=== PATIENT | male | born 1955 | race Caucasian/White ===

== ENCOUNTER → 2018-09-20 | Outpatient (CLI) | payer SELFPAY ==
--- NOTE | 2018-09-21 11:18 | US ---
EXAMINATION TYPE: US kidneys/renal and bladder DATE OF EXAM: 09/20/2018 COMPARISON: NONE CLINICAL HISTORY: R31.9 Hematuria. EXAM MEASUREMENTS: Right Kidney: 10.7 x 5.3 x 4.5 cm Left Kidney: 10.5 x 5.5 x 5.6 cm Right Kidney: No hydronephrosis or masses seen. Nodular contour Left Kidney: No hydronephrosis or masses seen. Nodular contour Bladder: wnl Bilateral Jets seen: Left jet visualized only There is no evidence for hydronephrosis at this point in time. No nephrolithiasis is seen. No neftali s are identified. The urinary bladder is anechoic. Bilateral ureteral jets are seen. IMPRESSION: Nodular renal contour without distinct mass.
== END | disposition home or self-care (01) ==
LOC: RADUSWWP 16:15
PROVIDERS: ATTEND Family Medicine
DX: R31.9 Hematuria, unspecified (principal)
CPT/HCPCS: 76770

== ENCOUNTER 2023-10-17 13:20 | Inpatient (IN) | payer OTHER ==
--- NOTE | 2023-10-17 14:51 | ED ---
General Adult HPI - General Chief complaint: Psychiatric Symptoms Stated complaint: mental health Time Seen by Provider: 10/17/23 13:36 Source: patient, EMS, RN notes reviewed Mode of arrival: EMS Limitations: no limitations - History of Present Illness Initial comments: 68-year-old male presents to the emergency department for evaluation of mental health issues. Patient states that he has been hearing voices for the past 2 to 3 weeks. He does have a history of this and was on Risperdal in the past. He has been off his medication for around 6 months. He states that about 3 days ago he was going to attempt suicide by hanging because voices had told him that he is not wanted here any longer. He has been hospitalized for his mental health in the past. - Related Data Home Medications Medication Instructions Recorded Confirmed No Known Home Medications 10/17/23 10/17/23 Allergies Allergy/AdvReac Type Severity Reaction Status Date / Time No Known Allergies Allergy Verified 10/17/23 15:18 Review of Systems ROS Statement: Those systems with pertinent positive or pertinent negative responses have been documented in the HPI. ROS Other: All systems not noted in ROS Statement are negative. Past Medical History Past Medical History: No Reported History Additional Past Surgical History / Comment(s): fatty tumor removal on back of neck Past Psychological History: Depression, Schizophrenia Smoking Status: Never smoker Past Alcohol Use History: Occasional Past Drug Use History: None Reported General Exam Limitations: no limitations General appearance: alert, in no apparent distress Head exam: Present: atraumatic, normocephalic, normal inspection Eye exam: Present: normal appearance, PERRL, EOMI. Absent: scleral icterus, conjunctival injection, periorbital swelling ENT exam: Present: normal exam, mucous membranes moist Neck exam: Present: normal inspection. Absent: tenderness, meningismus, lymphadenopathy Respiratory exam: Present: normal lung sounds bilaterally. Absent: respiratory distress, wheezes, rales, rhonchi, stridor Cardiovascular Exam: Present: regular rate, normal rhythm, normal heart sounds. Absent: systolic murmur, diastolic murmur, rubs, gallop, clicks GI/Abdominal exam: Present: soft. Absent: distended, tenderness, guarding, rebound, rigid Extremities exam: Present: normal inspection, full ROM, normal capillary refill. Absent: tenderness, pedal edema, joint swelling, calf tenderness Back exam: Present: normal inspection Neurological exam: Present: alert, oriented X3 Psychiatric exam: Present: normal affect, normal mood Course Vital Signs 10/17/23 10/17/23 10/17/23 13:26 16:29 18:26 Temperature 98.7 F Pulse Rate 101 H 100 105 H Respiratory 18 16 16 Rate Blood Pressure 165/112 148/96 149/99 O2 Sat by Pulse 98 97 98 Oximetry Medical Decision Making - Medical Decision Making Was pt. sent in by a medical professional or institution (, PA, AWS DEVELOPER, urgent care, hospital, or correction...) When possible be specific @ -No Did you speak to anyone other than the patient for history (EMS, parent, family, police, friend...)? What history was obtained from this source @ -No Did you review nursing and triage notes (agree or disagree)? Why? @ -I reviewed and agree with nursing and triage notes Were old charts reviewed (outside hosp., previous admission, EMS record, old EKG, old radiological studies, urgent care reports/EKG's, correction records)? Report findings @ -No old charts were reviewed Differential Diagnosis (chest pain, altered mental status, abdominal pain women, abdominal pain men, vaginal bleeding, weakness, fever, dyspnea, syncope, headache, dizziness, GI bleed, back pain, seizure, CVA, palpatations, mental health, musculoskeletal)? @ -Differential Mental Health Depression, anxiety, bipolar, psychosis, schizophrenia, borderline personality, situational depression, adjustment disorder, behavioral disorder, brain tumor, malingering, substance abuse, encephalopathy, medication reaction, dementia, hypothyroidism, degenerative neurologic disorder, lupus.... This is not meant to be all-inclusive list EKG interpreted by me (3pts min.). @ - EKG at 1722 shows sinus tachycardia rate 105, RI 147, QRS 102, QTQTc [id number] X-rays interpreted by me (1pt min.). @ -None done CT interpreted by me (1pt min.). @ -None done U/S interpreted by me (1pt. min.). @ -None done What testing was considered but not performed or refused? (CT, X-rays, U/S, labs)? Why? @ -None What meds were considered but not given or refused? Why? @ -None Did you discuss the management of the patient with other professionals (professionals i.e. , PA, AWS DEVELOPER, lab, RT, psych nurse, medical social consultant, turkey farmer, teacher, gunnery/ordnance officer, case mgr)? Give summary @ -Management discussed with EPS, recommending inpatient treatment Was smoking cessation discussed for >3mins.? @ -No Was critical care preformed (if so, how long)? @ -No Were there social determinants of health that impacted care today? How? (Homelessness, low income, unemployed, alcoholism, drug addiction, transportation, low edu. Level, literacy, decrease access to med. care, [facility], rehab)? @ -No Was there de-escalation of care discussed even if they declined (Discuss DNR or withdrawal of care, Hospice)? DNR status @ -No What co-morbidities impacted this encounter? (DM, HTN, Smoking, COPD, CAD, Cancer, CVA, ARF, Chemo, Hep., AIDS, mental health diagnosis, sleep apnea, morbid obesity)? @ -None Was patient admitted / discharged? Hospital course, mention meds given and route, prescriptions, significant lab abnormalities, going to OR and other pert inent info. @ -Admitted. Patient presented to the emergency department for evaluation of hallucinations, suicidal ideation. He has been off his mental health medication for around 6 months, the symptoms have been worse for the past 2 weeks. He admits to suicidal ideation. He states the voices are telling him to harm himself. He denies any physical complaints at this time. Patient evaluated by EPS, inpatient treatment recommended. Undiagnosed new problem with uncertain prognosis? @ -No Drug Therapy requiring intensive monitoring for toxicity (Heparin, Nitro, Insulin, Cardizem)? @ -No Were any procedures done? @ -No Diagnosis/symptom? @ -Hallucinations, suicidal ideation Acute, or Chronic, or Acute on Chronic? @ -Acute Uncomplicated (without systemic symptoms) or Complicated (systemic symptoms)? @ -Uncomplicated Side effects of treatment? @ -No Exacerbation, Progression, or Severe Exacerbation? @ -No Poses a threat to life or bodily function? How? (Chest pain, [place], [place], pneumonia, PE, COPD, DKA, ARF, appy, cholecystitis, CVA, Diverticulitis, Homicidal, Suicidal, threat to staff... and all critical care pts) @ -Yes - Lab Data Result diagrams: 10/17/23 17:01 10/17/23 17:01 Lab Results 10/17/23 10/17/23 10/17/23 Range/Units 16:15 16:15 16:15 WBC (3.8-10.6) k/uL RBC (4.30-5.90) m/uL Hgb (13.0-17.5) gm/dL Hct (39.0-53.0) % MCV (80.0-100.0) fL MCH (25.0-35.0) pg MCHC (31.0-37.0) g/dL RDW (11.5-15.5) % Plt Count (150-450) k/uL MPV Neutrophils % % Lymphocytes % % Monocytes % % Eosinophils % % Basophils % % Neutrophils # (1.3-7.7) k/uL Lymphocytes # (1.0-4.8) k/uL Monocytes # (0-1.0) k/uL Eosinophils # (0-0.7) k/uL Basophils # (0-0.2) k/uL Sodium (137-145) mmol/L Potassium (3.5-5.1) mmol/L Chloride (98-107) mmol/L Carbon Dioxide (22-30) mmol/L Anion Gap mmol/L BUN (9-20) mg/dL Creatinine (0.66-1.25) mg/dL Est GFR (CKD-EPI)AfAm (>60 ml/min/1.73 sqM) Est GFR (CKD-EPI)NonAf (>60 ml/min/1.73 sqM) Glucose (74-99) mg/dL Estimated Ave Glu mg/dL mg/dL Hemoglobin A1c (<=6.0) % Calcium (8.4-10.2) mg/dL Total Bilirubin (0.2-1.3) mg/dL AST (17-59) U/L ALT (4-49) U/L Alkaline Phosphatase (38-126) U/L Total Protein (6.3-8.2) g/dL Albumin (3.5-5.0) g/dL TSH (0.465-4.680) mIU/L Urine Color Light Yellow Urine Appearance Clear (Clear) Urine pH 6.5 (5.0-8.0) Ur Specific [place] 1.021 (1.001-1.035) Urine Protein Trace H (Negative) Urine Glucose (UA) Negative (Negative) Urine Ketones Negative (Negative) Urine Blood Negative (Negative) Urine Nitrite Negative (Negative) Urine Bilirubin Negative (Negative) Urine Urobilinogen <2.0 (<2.0) mg/dL Ur Leukocyte Esterase Negative (Negative) Urine Opiates Screen Not Detected (NotDetected) Ur Oxycodone Screen Not Detected (NotDetected) Urine Methadone Screen Not Detected (NotDetected) Ur Barbiturates Screen Not Detected (NotDetected) U Tricyclic Antidepress Not Detected (NotDetected) Ur Phencyclidine Scrn Not Detected (NotDetected) Ur Amphetamines Screen Not Detected (NotDetected) U Methamphetamines Scrn Not Detected (NotDetected) U Benzodiazepines Scrn Not Detected (NotDetected) Urine Cocaine Screen Not Detected (NotDetected) U Marijuana (THC) Screen Not Detected (NotDetected) SARS-CoV-2 (PCR) Not Detected (Not Detectd) 10/17/23 10/17/23 10/17/23 Range/Units 17:01 17:01 17:01 WBC 10.6 (3.8-10.6) k/uL RBC 5.10 (4.30-5.90) m/uL Hgb 16.5 (13.0-17.5) gm/dL Hct 48.6 (39.0-53.0) % MCV 95.3 (80.0-100.0) fL MCH 32.3 (25.0-35.0) pg MCHC 33.8 (31.0-37.0) g/dL RDW 12.7 (11.5-15.5) % Plt Count 242 (150-450) k/uL MPV 9.0 Neutrophils % 74 % Lymphocytes % 17 % Monocytes % 6 % Eosinophils % 1 % Basophils % 1 % Neutrophils # 7.9 H (1.3-7.7) k/uL Lymphocytes # 1.8 (1.0-4.8) k/uL Monocytes # 0.6 (0-1.0) k/uL Eosinophils # 0.1 (0-0.7) k/uL Basophils # 0.1 (0-0.2) k/uL Sodium 138 (137-145) mmol/L Potassium 3.7 (3.5-5.1) mmol/L Chloride 104 (98-107) mmol/L Carbon Dioxide 24 (22-30) mmol/L Anion Gap 10 mmol/L BUN 13 (9-20) mg/dL Creatinine 0.66 (0.66-1.25) mg/dL Est GFR (CKD-EPI)AfAm >90 (>60 ml/min/1.73 sqM) Est GFR (CKD-EPI)NonAf >90 (>60 ml/min/1.73 sqM) Glucose 136 H (74-99) mg/dL Estimated Ave Glu mg/dL 114 mg/dL Hemoglobin A1c 5.6 (<=6.0) % Calcium 9.1 (8.4-10.2) mg/dL Total Bilirubin 2.1 H (0.2-1.3) mg/dL AST 19 (17-59) U/L ALT 15 (4-49) U/L Alkaline Phosphatase 91 (38-126) U/L Total Protein 6.4 (6.3-8.2) g/dL Albumin 3.9 (3.5-5.0) g/dL TSH (0.465-4.680) mIU/L Urine Color Urine Appearance (Clear) Urine pH (5.0-8.0) Ur Specific [place] (1.001-1.035) Urine Protein (Negative) Urine Glucose (UA) (Negative) Urine Ketones (Negative) Urine Blood (Negative) Urine Nitrite (Negative) Urine Bilirubin (Negative) Urine Urobilinogen (<2.0) mg/dL Ur Leukocyte Esterase (Negative) Urine Opiates Screen (NotDetected) Ur Oxycodone Screen (NotDetected) Urine Methadone Screen (NotDetected) Ur Barbiturates Screen (NotDetected) U Tricyclic Antidepress (NotDetected) Ur Phencyclidine Scrn (NotDetected) Ur Amphetamines Screen (NotDetected) U Methamphetamines Scrn (NotDetected) U Benzodiazepines Scrn (NotDetected) Urine Cocaine Screen (NotDetected) U Marijuana (THC) Screen (NotDetected) SARS-CoV-2 (PCR) (Not Detectd) 10/17/23 Range/Units 17:01 WBC (3.8-10.6) k/uL RBC (4.30-5.90) m/uL Hgb (13.0-17.5) gm/dL Hct (39.0-53.0) % MCV (80.0-100.0) fL MCH (25.0-35.0) pg MCHC (31.0-37.0) g/dL RDW (11.5-15.5) % Plt Count (150-450) k/uL MPV Neutrophils % % Lymphocytes % % Monocytes % % Eosinophils % % Basophils % % Neutrophils # (1.3-7.7) k/uL Lymphocytes # (1.0-4.8) k/uL Monocytes # (0-1.0) k/uL Eosinophils # (0-0.7) k/uL Basophils # (0-0.2) k/uL Sodium (137-145) mmol/L Potassium (3.5-5.1) mmol/L Chloride (98-107) mmol/L Carbon Dioxide (22-30) mmol/L Anion Gap mmol/L BUN (9-20) mg/dL Creatinine (0.66-1.25) mg/dL Est GFR (CKD-EPI)AfAm (>60 ml/min/1.73 sqM) Est GFR (CKD-EPI)NonAf (>60 ml/min/1.73 sqM) Glucose (74-99) mg/dL Estimated Ave Glu mg/dL mg/dL Hemoglobin A1c (<=6.0) % Calcium (8.4-10.2) mg/dL Total Bilirubin (0.2-1.3) mg/dL AST (17-59) U/L ALT (4-49) U/L Alkaline Phosphatase (38-126) U/L Total Protein (6.3-8.2) g/dL Albumin (3.5-5.0) g/dL TSH 1.770 (0.465-4.680) mIU/L Urine Color Urine Appearance (Clear) Urine pH (5.0-8.0) Ur Specific [place] (1.001-1.035) Urine Protein (Negative) Urine Glucose (UA) (Negative) Urine Ketones (Negative) Urine Blood (Negative) Urine Nitrite (Negative) Urine Bilirubin (Negative) Urine Urobilinogen (<2.0) mg/dL Ur Leukocyte Esterase (Negative) Urine Opiates Screen (NotDetected) Ur Oxycodone Screen (NotDetected) Urine Methadone Screen (NotDetected) Ur Barbiturates Screen (NotDetected) U Tricyclic Antidepress (NotDetected) Ur Phencyclidine Scrn (NotDetected) Ur Amphetamines Screen (NotDetected) U Methamphetamines Scrn (NotDetected) U Benzodiazepines Scrn (NotDetected) Urine Cocaine Screen (NotDetected) U Marijuana (THC) Screen (NotDetected) SARS-CoV-2 (PCR) (Not Detectd) Disposition Clinical Impression: Depression, Hallucinations, Suicidal ideation Disposition: TRANSFER TO PSYCH HOSP/UNIT Condition: Stable Is patient prescribed a controlled substance at d/c from ED?: No
[2023-10-17 16:45] LABS: Amphetamine Screen,Urine Not Detected (NotDetected); Barbiturate Screen,Urine Not Detected (NotDetected); Benzodiazepines Screen,Urine Not Detected (NotDetected); Cocaine Screen,Urine Not Detected (NotDetected); Methadone Screen, Urine Not Detected (NotDetected); Opiate Screen,Urine Not Detected (NotDetected); Oxycodone Screen, Urine Not Detected (NotDetected); Phencyclidine Screen,Urine Not Detected (NotDetected); Tricyclic Antidepressant,Urine Not Detected (NotDetected); Urn Cannabinoid Scrn Not Detected (NotDetected)
[2023-10-17 17:37] LABS: Basophils # (A) 0.1 k/uL (0-0.2); Basophils % (A) 1 %; Eosinophils # (A) 0.1 k/uL (0-0.7); Eosinophils % (A) 1 %; HCT 48.6 % (39.0-53.0); HGB 16.5 gm/dL (13.0-17.5); Lymphocytes # (A) 1.8 k/uL (1.0-4.8); Lymphocytes % (A) 17 %; MCH 32.3 pg (25.0-35.0); MCHC 33.8 g/dL (31.0-37.0); MCV 95.3 fL (80.0-100.0); Monocytes # (A) 0.6 k/uL (0-1.0); Monocytes % (A) 6 %; Neutrophils # (A) 7.9 k/uL (1.3-7.7); Neutrophils % (A) 74 %; Platelet Count 242 k/uL (150-450); RDW 12.7 % (11.5-15.5); WBC 10.6 k/uL (3.8-10.6)
[2023-10-17 17:57] LABS: ALT 15 U/L (4-49); AST 19 U/L (17-59); African American GFR (CKD) >90 (>60 ml/min/1.73 sqM); Albumin 3.9 g/dL (3.5-5.0); Alkaline Phosphatase 91 U/L (38-126); Anion Gap 10 mmol/L; Blood Urea Nitrogen 13 mg/dL (9-20); Calcium 9.1 mg/dL (8.4-10.2); Carbon Dioxide 24 mmol/L (22-30); Chloride 104 mmol/L (98-107); Glucose 136 mg/dL (74-99); Non-African American GFR(CKD) >90 (>60 ml/min/1.73 sqM); Potassium 3.7 mmol/L (3.5-5.1); Sodium 138 mmol/L (137-145); Total Bilirubin 2.1 mg/dL (0.2-1.3); Total Protein 6.4 g/dL (6.3-8.2)
[2023-10-17 17:59] LABS: Appearance,Urine Clear (Clear); Bilirubin,Urine Negative (Negative); Blood,Urine Negative (Negative); Color,Urine Light Yellow; Glucose,Urine (UA) Negative (Negative); Ketones,Urine Negative (Negative); Leukocyte Esterase,Urine Negative (Negative); Nitrite,Urine Negative (Negative); PH, Urine 6.5 (5.0-8.0); Protein,Urine Trace (Negative); Specific Gravity,Urine 1.021 (1.001-1.035); Urobilinogen,Urine <2.0 mg/dL (<2.0)
[2023-10-17] MEDS ORDERED: ACETAMINOPHEN TAB 325 MG TAB PO PRN (18:13)
[2023-10-17] MEDS ORDERED: MAG HYDROX/AL HYDROX/SIMETH 355 ML BOTTLE PO PRN (18:13)
[2023-10-17] MEDS ORDERED: MAGNESIUM HYDROXIDE 2,400 MG/30 ML CUP PO PRN (18:13)
[2023-10-17] MEDS ORDERED: OLANZapine 10 MG VIAL IM PRN (18:15)
[2023-10-17] MEDS ORDERED: hydrOXYzine HCL 50 MG/ML 1 ML VIAL IM PRN (18:15)
[2023-10-17] MEDS ORDERED: hydrOXYzine pamoate 25 MG CAP PO PRN (18:15)
[2023-10-17] MEDS ORDERED: OLANZapine 2.5 MG TAB PO PRN (18:15)
--- NOTE | 2023-10-18 05:28 | P.MDCNMH ---
History of Present Illness H&P Date: 10/18/23 Chief Complaint: Medical evaluation 68-year-old male denies any significant past medical history Patient coming in for psych evaluation due to hearing voices for a long time now that started 2/2 to a lot to the point that he is thinking of ending his life and having suicidal thoughts. He denies any medical concerns denies any fevers chills nausea vomiting chest pain trouble breathing abdominal pain changes in bowel or urine habit denies any diarrhea denies any GI bleeding Patient denies tobacco smoking illicit drugs or heavy alcohol review of systems Pertinent positives as noted in HPI. All other systems were reviewed and are negative on exam Constitutional: No acute distress, conversant, pleasant Eyes: Anicteric sclerae, moist conjunctiva, Pupils equal round reactive to light ENMT: NC/AT Oropharynx clear, no erythema, or exudates Neck: Supple, no masses, or JVD No carotid bruits No thyromegaly Lungs: Clear to auscultation Clear to percussion Normal respiratory effort, no accessory muscle use Cardiovascular: Heart regular in rate and rhythm, No murmurs, gallops, or rubs No peripheral edema Abdominal: Soft Nontender, no guarding, rebound or rigidity Abdomen moving with respiration Normoactive bowel sounds Extremities: No digital cyanosis No clubbing Pedal pulses intact and symmetrical Radial pulses intact and symmetrical No calf tenderness Psychiatric: Alert and oriented to person, place and time Neuro Muscles Strength 5/5 in all 4 extremities Sensation to light touch grossly present throughout Cranial nerves II-XII grossly intact Past Medical History Past Medical History: No Reported History Additional Past Surgical History / Comment(s): fatty tumor removal on back of neck Past Psychological History: Depression, Schizophrenia Smoking Status: Never smoker Past Alcohol Use History: Occasional Past Drug Use History: None Reported Medications and Allergies Home Medications Medication Instructions Recorded Confirmed Type No Known Home Medications 10/17/23 10/17/23 History Allergies Allergy/AdvReac Type Severity Reaction Status Date / Time No Known Allergies Allergy Verified 10/17/23 15:18 Physical Exam Vitals: Vital Signs Temp Pulse Pulse Resp BP BP Pulse Ox 10/17/23 19:11 98.2 F 110 H 16 134/83 96 10/17/23 18:26 105 H 16 149/99 98 10/17/23 16:29 100 16 148/96 97 03/13/24 13:26 98.7 F 101 H 18 165/112 98 Intake and Output 10/17/23 10/17/23 10/18/23 14:59 22:59 06:59 Other: Weight 79.379 kg 73.255 kg Cranial Nerve Examination - Cranial Nerves Cranial Nerve II- Optic: Intact Cranial Nerve III- Oculomotor: Intact Cranial Nerve IV- Trochlear: Intact Cranial Nerve V- Trigeminal: Intact Cranial Nerve - Abducens: Intact Cranial Nerve VII- Facial: Intact Cranial Nerve VIII- Auditory: Intact Cranial Nerve IX- Glossopharyngeal: Intact Cranial Nerve X- Vagus: Intact Cranial Nerve XI- Accessory: Intact Cranial Nerve XII- Hypoglossal: Intact Results CBC & Chem 7: 10/17/23 17:01 10/17/23 17:01 Labs: Abnormal Lab Results - Last 24 Hours (Table) 10/17/23 10/17/23 10/17/23 Range/Units 16:15 17:01 17:01 Neutrophils # 7.9 H (1.3-7.7) k/uL Glucose 136 H (74-99) mg/dL Total Bilirubin 2.1 H (0.2-1.3) mg/dL Urine Protein Trace H (Negative) Assessment and Plan Assessment: Acute psychosis Suicidal ideation Management by psych Stable from medical standpoint Blood work reviewed unremarkable Thank you for this consultation
[2023-10-18] MEDS: NICOTINE 14MG/24HR PATCH TRANSDERM SCH (08:23)
--- NOTE | 2023-10-18 12:33 | P.HP ---
Psychiatric H&P - . H&P Date: 10/18/23 History & Physical: Allergies Allergy/AdvReac Type Severity Reaction Status Date / Time No Known Allergies Allergy Verified 10/17/23 15:18 Vital Signs Temp 98.2 F 10/17/23 19:11 Pulse 110 H 10/17/23 19:11 Resp 16 10/17/23 19:11 BP 134/83 10/17/23 19:11 Pulse Ox 96 10/17/23 19:11 FiO2 Intake & Output 10/17/23 10/18/23 10/18/23 18:59 06:59 18:59 Weight 79.379 kg 73.255 kg Laboratory Last Values WBC 10.6 k/uL (3.8-10.6) 10/17/23 17:01 RBC 5.10 m/uL (4.30-5.90) 10/17/23 17:01 Hgb 16.5 gm/dL (13.0-17.5) 10/17/23 17:01 Hct 48.6 % (39.0-53.0) 10/17/23 17:01 MCV 95.3 fL (80.0-100.0) 10/17/23 17:01 MCH 32.3 pg (25.0-35.0) 10/17/23 17:01 MCHC 33.8 g/dL (31.0-37.0) 10/17/23 17:01 RDW 12.7 % (11.5-15.5) 10/17/23 17:01 Plt Count 242 k/uL (150-450) 10/17/23 17:01 MPV 9.0 10/17/23 17:01 Neutrophils % 74 % 10/17/23 17:01 Lymphocytes % 17 % 10/17/23 17:01 Monocytes % 6 % 10/17/23 17:01 Eosinophils % 1 % 10/17/23 17:01 Basophils % 1 % 10/17/23 17:01 Neutrophils # 7.9 k/uL (1.3-7.7) H 10/17/23 17:01 Lymphocytes # 1.8 k/uL (1.0-4.8) 10/17/23 17:01 Monocytes # 0.6 k/uL (0-1.0) 10/17/23 17:01 Eosinophils # 0.1 k/uL (0-0.7) 10/17/23 17:01 Basophils # 0.1 k/uL (0-0.2) 10/17/23 17:01 Sodium 138 mmol/L (137-145) 10/17/23 17:01 Potassium 3.7 mmol/L (3.5-5.1) 10/17/23 17:01 Chloride 104 mmol/L (98-107) 10/17/23 17:01 Carbon Dioxide 24 mmol/L (22-30) 10/17/23 17:01 Anion Gap 10 mmol/L 10/17/23 17:01 BUN 13 mg/dL (9-20) 10/17/23 17:01 Creatinine 0.66 mg/dL (0.66-1.25) 10/17/23 17:01 Est GFR (CKD-EPI)AfAm >90 (>60 ml/min/1.73 sqM) 10/17/23 17:01 Est GFR (CKD-EPI)NonAf >90 (>60 ml/min/1.73 sqM) 10/17/23 17:01 Glucose 136 mg/dL (74-99) H 10/17/23 17:01 Calcium 9.1 mg/dL (8.4-10.2) 10/17/23 17:01 Total Bilirubin 2.1 mg/dL (0.2-1.3) H 10/17/23 17:01 AST 19 U/L (17-59) 10/17/23 17:01 ALT 15 U/L (4-49) 10/17/23 17:01 Alkaline Phosphatase 91 U/L (38-126) 10/17/23 17:01 Total Protein 6.4 g/dL (6.3-8.2) 10/17/23 17:01 Albumin 3.9 g/dL (3.5-5.0) 10/17/23 17:01 TSH 1.770 mIU/L (0.465-4.680) 10/17/23 17:01 Urine Color Light Yellow 10/17/23 16:15 Urine Appearance Clear (Clear) 10/17/23 16:15 Urine pH 6.5 (5.0-8.0) 10/17/23 16:15 Ur Specific [place] 1.021 (1.001-1.035) 10/17/23 16:15 Urine Protein Trace (Negative) H 10/17/23 16:15 Urine Glucose (UA) Negative (Negative) 10/17/23 16:15 Urine Ketones Negative (Negative) 10/17/23 16:15 Urine Blood Negative (Negative) 10/17/23 16:15 Urine Nitrite Negative (Negative) 10/17/23 16:15 Urine Bilirubin Negative (Negative) 10/17/23 16:15 Urine Urobilinogen <2.0 mg/dL (<2.0) 10/17/23 16:15 Ur Leukocyte Esterase Negative (Negative) 10/17/23 16:15 Urine Opiates Screen Not Detected (NotDetected) 10/17/23 16:15 Ur Oxycodone Screen Not Detected (NotDetected) 10/17/23 16:15 Urine Methadone Screen Not Detected (NotDetected) 10/17/23 16:15 Ur Barbiturates Screen Not Detected (NotDetected) 10/17/23 16:15 U Tricyclic Antidepress Not Detected (NotDetected) 10/17/23 16:15 Ur Phencyclidine Scrn Not Detected (NotDetected) 10/17/23 16:15 Ur Amphetamines Screen Not Detected (NotDetected) 10/17/23 16:15 U Methamphetamines Scrn Not Detected (NotDetected) 10/17/23 16:15 U Benzodiazepines Scrn Not Detected (NotDetected) 10/17/23 16:15 Urine Cocaine Screen Not Detected (NotDetected) 10/17/23 16:15 U Marijuana (THC) Screen Not Detected (NotDetected) 10/17/23 16:15 SARS-CoV-2 (PCR) Not Detected (Not Detectd) 10/17/23 16:15 10/18/23 09:01 IDENTIFYING DATA: Patient is a 68-year-old male. Has 4 children. Lives alone in an apartment, retired, HPI: Patient presented to the hospital on 10/16. Family called police for a welfare check, police brought patient to the ER. As per EPS note, "Pt admits to AH that have increased in the last 2 weeks. He hears other people telling him that he is worthless and to kill himself. He states that he is currently suicidal and tried to kill himself 2 days ago. He states that he put a belt around his neck, became uncomfortable and took it off, he denies any loss of consciousness to this RN. He states that he just took the belt off, sat in the chair, and "fought it, I fought the thoughts". Per his brother, whom was present during assessment pt has become more isolative and been sending cryptic messages to the family. He had an episode like this years ago. He denies any drugs and just social ETOH use. He states that he has not been sleeping well the last few days. Denies any medical conditions and not taking any medications. He states he was on Risperidone 2mg, but stopped taking that about 6 months ago. He stopped outpatient years ago because he felt he didn't need it anymore." Upon today's assessment, he states that he was hearing voices for the past couple weeks. The voices was telling him they did not want him here anymore. He states that his meds were working for him, however, around 6 months ago, he was unable to afford to take his medications any longer. He misses his family. Recently lost both his parents, which is increasing his depression. Patient states his sleep and appetite is pretty good. Patient denies any suicidal or homicidal ideations intent or plan. Patient was fairly concrete, vague. At this time patient admits to auditory and denies visual hallucinations. Patient denies any flight of ideas racing thoughts and increased in goal directed behavior. Patients UDS was negative. Patient does not smoke. PAST PSYCHIATRIC HISTORY: Patient states that he stopped taking his risperdal about 6 months ago, which was prescribed by his PCP. Patient denies any previous psychiatric hospitalizations however did state that he was hospitalized on this unit several years ago. Patient denies any psychiatric outpatient follow-up. Patient denies any history of suicide attempts in the past. PMH:As per ER note ALLERGIES: as per EMR CHEMICAL DEPENDENCY HISTORY: as per HPI FAMILY PSYCHIATRIC/SUBSTANCE USE HISTORY: Denies SOCIAL HISTORY: Patient was born and raised in [place], [place], graduated high school, lives alone in an apartment. Has 4 children. Used to work as a local company truck driver. Has been to [facility] in the 70's, but no legal issues since then. MENTAL STATUS EXAM: General Appearance: Patient appears to be stated age is alert, directable, and attempts to cooperate. Patient appears to have adequate hygiene and grooming. Behavior: Patient is seated without any agitated behavior. Patient hard of hearing. Fair eye contact. Speech: Patient's speech is fluent and nonpressured. [place] Mood/Affect: Patient reports their mood is ok, affect is congruent and constricted. Suicidality/Homicidality: Patient denies having any homicidal ideation intent or plan. Denies any suicidal ideations intent or plan Perceptions: Patient denies any visual hallucinations and endorses auditory hallucinations Though content/process: There is no evidence of any delusional thought content and thought process is linear and goal-directed. Memory and concentration: AOX3, grossly intact for the purposes of this session. Can spell "WORLD" backwards Judgment and insight: fair STRENGTHS/WEAKNESSES: strength is that patient is resilient. Weakness is that patient has poor judgment and is impulsive INTELLECT: Average IMPRESSIONS: schizoeffective disorder, depressive type suicide attempt by hanging noncompliance with medication PLAN: -Patient is admitted under voluntary status to MHU for stabilization of psychiatric symptoms and safety. Patient has signed adult voluntary form and medication consent and is placed in patient's chart. -Medications : Risperdal 1mg qhs for psychosis, Zoloft 25mg qhs for mood/anxiety -Ativan and Haldol PRN for agitation/aggression -Patient was informed of the risks, benefits and side effects of the medication and patient verbally consented to taking the medications. -Internal Medicine consult to perform medical evaluation and physical. -NRT -nonsmoker -SW on board for discharge planning. Encourage patient to participate in groups to work on coping skills. 10/18/23 12:14 10/18/23 12:30
[2023-10-18] MEDS: risperiDONE 1 MG TAB PO SCH (20:40)
[2023-10-18] MEDS: SERTRALINE 25 MG TAB PO SCH (20:40)
--- NOTE | 2023-10-19 12:53 | P.PN ---
Progress Note - Text Progress Note Date: 10/19/23 Interval History: Patient was seen in the [facility], and was directable and agreeable to speak with fiction and nonfiction writer prose in the office. Patient states today, he is feeling pretty good, and he took the medications last night, and offers no complaints at this time. Patient is attending groups. He claims that he slept pretty good last night. He states his appetite is good. Continues to be fairly concrete in his voice. At this time patient denies any suicidal or homicidal ideations, intent or plan. Patient denies any auditory, visual hallucinations and denies any paranoia or delusions. Patient denies any side effects from the medications and has been compliant with meds. Continues to be responding to internal stimuli and talking to himself in his room as reported by nurses. MENTAL STATUS EXAM: General Appearance: Patient appears to be stated age is alert, directable, and attempts to cooperate. Patient appears to have adequate hygiene and grooming. Behavior: Patient is seated without any agitated behavior. Patient hard of hearing. Fair eye contact. Speech: Patient's speech is fluent and nonpressured. [place] Mood/Affect: Patient reports their mood is "pretty good", affect is congruent and constricted. Improving mildly Suicidality/Homicidality: Patient denies having any homicidal ideation intent or plan. Denies any suicidal ideations intent or plan Perceptions: Patient denies any visual hallucinations and endorses auditory hallucinations Though content/process: There is no evidence of any delusional thought content and thought process is linear and goal-directed. Fairly concrete Memory and concentration: AOX3, grossly intact for the purposes of this session. Judgment and insight: fair IMPRESSIONS: schizoeffective disorder, depressive type suicide attempt by hanging noncompliance with medication PLAN: -Patient is admitted under voluntary status to MHU for stabilization of psychiatric symptoms and safety. Patient has signed adult voluntary form and medication consent and is placed in patient's chart. -Medications : increase Risperdal 2mg qhs for psychosis, Zoloft 25mg qhs for mood/anxiety -Ativan and Haldol PRN for agitation/aggression -SW on board for discharge planning. Encourage patient to participate in groups to work on coping skills. Likely discharge early next week if patient continues to improve. Will offer long-acting injection to help with compliance.
[2023-10-19] MEDS: risperiDONE 2 MG TAB PO SCH (21:11)
--- NOTE | 2023-10-20 19:23 | P.PN ---
Progress Note - Text Progress Note Date: 10/20/23 Interval history: Patient was seen socializing with peers and was directable and agreeable to speak with parts data writer. He is calm and pleasant. He reports he is doing well on his medications. At this time patient denies any suicidal or homicidal ideation, intent or plan. Denies any auditory or visual hallucinations. Patient denies any side effects from the medications and has been compliant with meds. Mental status exam: General Appearance: Patient appears to be stated age, dressed in clean street attire, good hygiene and grooming Behavior: No agitated behavior. Patient is calm and directable. Speech: Patient's speech is fluent and non-pressured. Mood/Affect: Mood is improving mildly, affect is congruent and constricted. Suicidality/Homicidality: Patient denies having any suicidal or homicidal ideation intent or plan. Perceptions: Patient denies any auditory or visual hallucinations. Though content/process: There is no evidence of any delusional thought content and thought process is linear and goal-directed. Memory and concentration: AOX3, grossly intact for the purposes of this session Judgment and insight: improving mildly Assessment/Plan: Continue with current diagnosis. Patient continues to meet criteria for inpatient psychiatric admission for symptom stabilization and safety. Patient will be maintained on current psychotropic medication regimen. Monitor for medication compliance and for any psychotropic medication side effects. Will continue to monitor ongoing response to treatment. Encouraged participation in milieu.
--- NOTE | 2023-10-21 17:03 | P.PN ---
Progress Note - Text Progress Note Date: 10/21/23 Interval history: Patient was seen socializing with peers and was directable and agreeable to speak with principal technical writer. He is calm and pleasant. He reports he is doing well on his medications. He denies depressed mood, states he just misses his family and is looking forward to discharge. He denies anxiety. At this time patient denies any suicidal or homicidal ideation, intent or plan. Denies any auditory or visual hallucinations. Patient denies any side effects from the medications and has been compliant with meds. Mental status exam: General Appearance: Patient appears to be stated age, dressed in clean street attire, good hygiene and grooming Behavior: No agitated behavior. Patient is calm and directable. Speech: Patient's speech is fluent and non-pressured. Mood/Affect: Mood is improving mildly, affect is congruent and constricted. Suicidality/Homicidality: Patient denies having any suicidal or homicidal ideation intent or plan. Perceptions: Patient denies any auditory or visual hallucinations. Though content/process: There is no evidence of any delusional thought content and thought process is linear and goal-directed. Memory and concentration: AOX3, grossly intact for the purposes of this session Judgment and insight: improving mildly Assessment/Plan: Continue with current diagnosis. Patient continues to meet criteria for inpatient psychiatric admission for symptom stabilization and safety. Patient will be maintained on current psychotropic medication regimen. Monitor for medication compliance and for any psychotropic medication side effects. Will continue to monitor ongoing response to treatment. Encouraged participation in milieu.
--- NOTE | 2023-10-22 10:09 | P.PN ---
Progress Note - Text Progress Note Date: 10/22/23 Interval History: Patient was [place] [facility] and was directable and agreeable to speak with contract technical writer in the office. Patient states today, he is feeling a little depressed, because he misses his family, and offers no complaints at this time. Patient is attending groups. He claims that he slept pretty good last night. He states his appetite is good. Claims that he is tolerating medications well. Continues to be fairly concrete in his voice, however this is mildly improving. At this time patient denies any suicidal or homicidal ideations, intent or plan. Patient denies any auditory, visual hallucinations and denies any paranoia or delusions. Patient denies any side effects from the medications and has been compliant with meds. States he is no longer endorsing auditory hallucinations. MENTAL STATUS EXAM: General Appearance: Patient appears to be stated age is alert, directable, and attempts to cooperate. Patient appears to have adequate hygiene and grooming. Behavior: Patient is seated without any agitated behavior. Patient hard of hearing. Fair eye contact. Speech: Patient's speech is fluent and nonpressured. [place], mildly improving Mood/Affect: Patient reports their mood is "a little depressed", affect is congruent and constricted. Improving mildly Suicidality/Homicidality: Patient denies having any homicidal ideation intent or plan. Denies any suicidal ideations intent or plan Perceptions: Patient denies any visual hallucinations and endorses auditory hallucinations Though content/process: There is no evidence of any delusional thought content and thought process is linear and goal-directed. Fairly concrete, mildly improving Memory and concentration: AOX3, grossly intact for the purposes of this session. Judgment and insight: fair, improving mildly IMPRESSIONS: schizoeffective disorder, depressive type suicide attempt by hanging noncompliance with medication PLAN: -Patient is admitted under voluntary status to MHU for stabilization of psychiatric symptoms and safety. Patient has signed adult voluntary form and medication consent and is placed in patient's chart. -Medications :Risperdal 2mg qhs for psychosis, increase Zoloft 50mg qhs for mood/anxiety. patient is refusing [place] -Ativan and Haldol PRN for agitation/aggression -SW on board for discharge planning. Encourage patient to participate in groups to work on coping skills. Likely discharge Sunday- if patient continues to improve.
[2023-10-22] MEDS: SERTRALINE 50 MG TAB PO SCH (21:09)
--- NOTE | 2023-10-23 10:13 | P.PN ---
Progress Note - Text Progress Note Date: 10/23/23 Interval History: [facility], and was directable and agreeable to speak with bond underwriter in the office. Patient states today he's feeling "pretty good", and offers no complaints at this time. Patient is attending groups, and participating in them. He claims that he slept well last night. He states his appetite is good. Claims that he is tolerating medications well. Continues to be fairly concrete, attempts to cooperate. At this time patient denies any suicidal or homicidal ideations, intent or plan. Patient denies any auditory, visual hallucinations and denies any paranoia or delusions. Patient denies any side effects from the medications and has been compliant with meds. States he is no longer endorsing auditory hallucinations. MENTAL STATUS EXAM: General Appearance: Patient appears to be stated age is alert, directable, and attempts to cooperate. Patient appears to have adequate hygiene and grooming. Behavior: Patient is seated without any agitated behavior. Patient hard of hearing. Fair eye contact. Speech: Patient's speech is fluent and nonpressured. [place], mildly improving Mood/Affect: Patient reports their mood is "good", affect is congruent and constricted. Improving mildly Suicidality/Homicidality: Patient denies having any homicidal ideation intent or plan. Denies any suicidal ideations intent or plan Perceptions: Patient denies any visual hallucinations and endorses auditory hallucinations Though content/process: There is no evidence of any delusional thought content and thought process is linear and goal-directed. Fairly concrete, mildly improving Memory and concentration: AOX3, grossly intact for the purposes of this session. Judgment and insight: improving mildly IMPRESSIONS: schizoeffective disorder, depressive type suicide attempt by hanging noncompliance with medication PLAN: -Patient is admitted under voluntary status to MHU for stabilization of psychiatric symptoms and safety. Patient has signed adult voluntary form and medication consent and is placed in patient's chart. -Medications :Risperdal 2mg qhs for psychosis, Zoloft 50mg qhs for mood/anxiety. patient is refusing [place] -Ativan and Haldol PRN for agitation/aggression -SW on board for discharge planning. Encourage patient to participate in groups to work on coping skills. Likely discharge tomorrow with his brother, if patient continues to improve.
[2023-10-24] MEDS ORDERED: DAPAGLIFLOZIN PROPANEDIOL 10 MG TABLET PO SCH (09:00)
[2023-10-24] MEDS ORDERED: PIOGLITAZONE 30 MG TAB PO SCH (09:00)
--- NOTE | 2023-10-24 10:30 | P.DS ---
Providers Date of admission: 10/17/23 18:07 Expected date of discharge: 10/24/23 Attending physician: Denny Thakur MD Consults: 10/17/23 18:13 Consult Physician Routine Consulting Provider: Som Olivarez Consult Reason/Comments: H&P Do you want consulting provider notified?: Yes Primary care physician: Ugo Vasquez - Discharge Diagnosis(es) (1) Schizoaffective disorder, depressive type Current Visit: Yes Status: Acute Priority: High (2) Suicide attempt by hanging Current Visit: Yes Status: Acute Priority: High (3) Noncompliance with medication regimen Current Visit: Yes Status: Acute Priority: Medium Hospital Course: Admission HPI: Admission note was completed by pattern chart writer "Patient presented to the hospital on 10/16. Family called police for a welfare check, police brought patient to the ER. As per EPS note, "Pt admits to that have increased in the last 2 weeks. He hears other people telling him that he is worthless and to kill himself. He states that he is currently suicidal and tried to kill himself 2 days ago. He states that he put a belt around his neck, became uncomfortable and took it off, he denies any loss of consciousness to this RN. He states that he just took the belt off, sat in the chair, and "fought it, I fought the thoughts". Per his brother, whom was present during assessment pt has become more isolative and been sending cryptic messages to the family. He had an episode like this years ago. He denies any drugs and just social ETOH use. He states that he has not been sleeping well the last few days. Denies any medical conditions and not taking any medications. He states he was on Risperidone 2mg, but stopped taking that about 6 months ago. He stopped outpatient years ago because he felt he didn't need it anymore." Upon today's assessment, he states that he was hearing voices for the past couple weeks. The voices was telling him they did not want him here anymore. He states that his meds were working for him, however, around 6 months ago, he was unable to afford to take his medications any longer. He misses his family. Recently lost both his parents, which is increasing his depression. Patient states his sleep and appetite is pretty good. Patient denies any suicidal or homicidal ideations intent or plan. Patient was fairly concrete, vague. At this time patient admits to auditory and denies visual hallucinations. Patient denies any flight of ideas racing thoughts and increased in goal directed behavior. Patients UDS was negative. Patient does not smoke." Hospital course: Upon admission to the unit patient was directable and agreeable to commence treatment and signed adult voluntary form. Patient got along well with other patients on the unit and followed unit protocol. Patient was compliant with the medications and denied any side effects throughout hospital course. Patient was started on Risperdal p.o. 2 mg nightly for psychosis/mood stabilization, Zoloft 50 mg nightly for mood/anxiety. Patient was offered long-acting injection to help ensure compliance however he refused. Patient spoke of his stressors and engaged in therapy both group and individual. Patient was also seen by medical team for history and physical exam. Throughout the course of the hospitalization patient gradually improved with regards to mood, anxiety, psychosis, hallucinations, sleep and returned back to their baseline level of functioning. On the day of discharge patient denied any suicidal or homicidal id eations intent or plan denied any auditory or visual hallucinations. Patient endorsed wanting to live for his health and family, grandkids. The patient denied any access to guns or weapons. Patient denied any paranoia and did not endorse any delusions. Patient does not have a significant history of substance abuse and was counseled on abstaining from all substances including alcohol and marijuana. Patient was also counseled on the medications and need for regular compliance and was encouraged to follow-up with their outpatient appointment for mental health and also for primary care. Patient will be discharged home with close [facility] follow-up. Mental status exam: General Appearance: Patient appears to be thin, unshaven, stated age is alert, pleasant, and cooperative. Patient is in no acute distress and has improved hygiene and grooming Behavior: Patient is calmly seated without any agitated behavior. Speech: Patient's speech is fluent and nonpressured. Mood/Affect: Patient reports their mood is "better", affect is congruent and euthymic. Suicidality/Homicidality: Patient denies having any suicidal or homicidal ideation intent or plan. Perceptions: Patient denies any auditory or visual hallucinations. Though content/process: There is no evidence of any delusional thought content and thought process is linear and goal-directed. concrete. Memory and concentration: AOX3, grossly intact for the purposes of this session. Can spell "WORLD" backwards correctly. Judgment and insight: Chronically poor, however has improved with guarded prognosis Impression: schizoeffective disorder, depressive type suicide attempt by hanging noncompliance with medication Plan: -Continue with discharge today as patient has improved and stabilized psychiatrically and is not currently an imminent threat to himself and/or others. Patient will remain at chronically elevated risk for harm to self and/or others due to his impulsivity and chronic mental illness. -Continue medications: Risperdal p.o. 2 mg nightly for psychosis, Zoloft 50 mg nightly for mood/anxiety. Patient is refusing long-acting injection. -Patient was counseled on the need for medication compliance and appropriate follow-up at mental health and also primary care for medical issues. Patient verbalized understanding and agreed. -Social work to arrange for and conduct family meeting to ensure safety upon discharge and answer any questions/concerns. Social work also to arrange for patients follow up appointments with [facility] for psychiatric care along with follow up with primary care provider. -Patient counseled on abstaining from recreational drugs and marijuana and alcohol. Was informed/educated on the adverse effects on their physical and mental health. Patient verbally agreed and understood. -Patient was instructed to return to the hospital or seek immediate medical care if their psychiatric or medical symptoms do worsen or reoccur. Allergies Allergy/AdvReac Type Severity Reaction Status Date / Time No Known Allergies Allergy Verified 10/17/23 15:18 Laboratory Results WBC 10.6 k/uL (3.8-10.6) 10/17/23 17: RBC 5.10 m/uL (4.30-5.90) 10/17/23 17:01 Hgb 16.5 gm/dL (13.0-17.5) 10/17/23 17: Hct 48.6 % (39.0-53.0) 10/17/23 17: MCV 95.3 fL (80.0-100.0) 10/17/23 17: MCH 32.3 pg (25.0-35.0) 10/17/23 17: MCHC 33.8 g/dL (31.0-37.0) 10/17/23 17:01 RDW 12.7 % (11.5-15.5) 10/17/23 17:01 Plt Count 242 k/uL (150-450) 10/17/23 17:01 MPV 9.0 10/17/23 17:01 Neutrophils % 74 % 10/17/23 17:01 Lymphocytes % 17 % 10/17/23 17:01 Monocytes % 6 % 10/17/23 17:01 Eosinophils % 1 % 10/17/23 17:01 Basophils % 1 % 10/17/23 17:01 Neutrophils # 7.9 k/uL (1.3-7.7) H 10/17/23 17:01 Lymphocytes # 1.8 k/uL (1.0-4.8) 10/17/23 17:01 Monocytes # 0.6 k/uL (0-1.0) 10/17/23 17:01 Eosinophils # 0.1 k/uL (0-0.7) 10/17/23 17:01 Basophils # 0.1 k/uL (0-0.2) 10/17/23 17:01 Sodium 138 mmol/L (137-145) 10/17/23 17:01 Potassium 3.7 mmol/L (3.5-5.1) 10/17/23 17:01 Chloride 104 mmol/L (98-107) 10/17/23 17:01 Carbon Dioxide 24 mmol/L (22-30) 10/17/23 17:01 Anion Gap 10 mmol/L 10/17/23 17:01 BUN 13 mg/dL (9-20) 10/17/23 17:01 Creatinine 0.66 mg/dL (0.66-1.25) 10/17/23 17:01 Est GFR (CKD-EPI)AfAm >90 (>60 ml/min/1.73 sqM) 10/17/23 17:01 Est GFR (CKD-EPI)NonAf >90 (>60 ml/min/1.73 sqM) 10/17/23 17:01 Glucose 136 mg/dL (74-99) H 10/17/23 17:[address] Glu mg/dL 114 mg/dL 10/17/23 17:01 Hemoglobin A1c 5.6 % (<=6.0) 10/17/23 17:01 Calcium 9.1 mg/dL (8.4-10.2) 10/17/23 17:01 Total Bilirubin 2.1 mg/dL (0.2-1.3) H 10/17/23 17:01 AST 19 U/L (17-59) 10/17/23 17:01 ALT 15 U/L (4-49) 10/17/23 17:01 Alkaline Phosphatase 91 U/L (38-126) 10/17/23 17:01 Total Protein 6.4 g/dL (6.3-8.2) 10/17/23 17:01 Albumin 3.9 g/dL (3.5-5.0) 10/17/23 17:01 TSH 1.770 mIU/L (0.465-4.680) 10/17/23 17:01 Urine Color Light Yellow 10/17/23 16:15 Urine Appearance Clear (Clear) 10/17/23 16:15 Urine pH 6.5 (5.0-8.0) 10/17/23 16:15 Ur Specific [place] 1.021 (1.001-1.035) 10/17/23 16:15 Urine Protein Trace (Negative) H 10/17/23 16:15 Urine Glucose (UA) Negative (Negative) 10/17/23 16:15 Urine Ketones Negative (Negative) 10/17/23 16:15 Urine Blood Negative (Negative) 10/17/23 16:15 Urine Nitrite Negative (Negative) 10/17/23 16:15 Urine Bilirubin Negative (Negative) 10/17/23 16:15 Urine Urobilinogen <2.0 mg/dL (<2.0) 10/17/23 16:15 Ur Leukocyte Esterase Negative (Negative) 10/17/23 16:15 Urine Opiates Screen Not Detected (NotDetected) 10/17/23 16:15 Ur Oxycodone Screen Not Detected (NotDetected) 10/17/23 16:15 Urine Methadone Screen Not Detected (NotDetected) 10/17/23 16:15 Ur Barbiturates Screen Not Detected (NotDetected) 10/17/23 16:15 U Tricyclic Antidepress Not Detected (NotDetected) 10/17/23 16:15 Ur Phencyclidine Scrn Not Detected (NotDetected) 10/17/23 16:15 Ur Amphetamines Screen Not Detected (NotDetected) 10/17/23 16:15 U Methamphetamines Scrn Not Detected (NotDetected) 10/17/23 16:15 U Benzodiazepines Scrn Not Detected (NotDetected) 10/17/23 16:15 Urine Cocaine Screen Not Detected (NotDetected) 10/17/23 16:15 U Marijuana (THC) Screen Not Detected (NotDetected) 10/17/23 16:15 SARS-CoV-2 (PCR) Not Detected (Not Detectd) 10/17/23 16:15 Vital Signs Temp 96.7 F L 10/24/23 06:14 Pulse 96 10/24/23 06:14 Resp 18 10/24/23 06:14 BP 102/55 10/24/23 06:14 Pulse Ox 97 10/24/23 06:14 FiO2 Patient Condition at Discharge: Stable Plan - Discharge Summary Discharge Rx Participant: No New Discharge Prescriptions: New Nicotine 14Mg/24Hr Patch [Habitrol] 1 patch TRANSDERM DAILY 14 Days #14 patch risperiDONE [RisperDAL] 2 mg PO HS 30 Days #30 tab Sertraline [Zoloft] 50 mg PO HS 30 Days #30 tab Discharge Medication List Nicotine 14Mg/24Hr Patch [Habitrol] 1 patch TRANSDERM DAILY 14 Days #14 patch 10/24/23 [Rx] Sertraline [Zoloft] 50 mg PO HS 30 Days #30 tab 10/24/23 [Rx] risperiDONE [RisperDAL] 2 mg PO HS 30 Days #30 tab 10/24/23 [Rx] Follow up Appointment(s)/Referral(s): Ugo Vasquez MD [Primary Care Provider] - 1-2 days Patient Instructions/Handouts: Depression (DC), Schizoaffective Disorder (DC), Suicide Prevention (DC) Activity/Diet/Wound Care/Special Instructions: Avoid the use of street drugs and alcohol. Take all medications as prescribed. When you are in need of refills on your medications, please contact your medical provider and/or outpatient psychiatrist/provider to have this done. Please go to your scheduled outpatient appointment for aftercare treatment. If symptoms return or become worse, call the crisis line at and/or go to the nearest emergency room for evaluation. National Suicide Hotline 988. Discharge Disposition: HOME SELF-CARE
[2023-10-24 11:39] VITALS: BP 105/53; PULSE 62; RESP 20; TEMP 98.8
== END 2023-10-24 12:35 | disposition home or self-care (01) | DRG 885 ==
LOC: EC 13:20 → 3MHU 18:07
PROVIDERS: ADMIT Psychiatry & Neurology Psychiatry; ATTEND Psychiatry & Neurology Psychiatry
DX: F25.1 Schizoaffective disorder, depressive type (principal); R45.851 Suicidal ideations; Z91.148 Patient's other noncompliance with medication regimen for other reason; Z11.52 Encounter for screening for COVID-19; H91.90 Unspecified hearing loss, unspecified ear; Z71.41 Alcohol abuse counseling and surveillance of alcoholic; Z71.51 Drug abuse counseling and surveillance of drug abuser; Z81.8 Family history of other mental and behavioral disorders
CPT/HCPCS: 36415; 80053; 80306; 81003; 82075; 83036; 84443; 85025; 87635; 93005; 99285